=== PATIENT | female | born 1955 | race Caucasian/White ===

== ENCOUNTER 2017-08-05 22:38 | Emergency (ER) | payer MEDICAID ==
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
[2017-08-05 23:48] LABS: % BASOPHILS 0.9 % (0.0-2.0); % EOSINOPHILS 1.3 % (0.0-5.0); % LYMPHOCYTES 30.8 % (20.0-50.0); % MONOCYTES 10.6 % (2.0-10.0); % NEUTROPHILS 56.4 % (40.0-80.0); HEMATOCRIT 26.9 % (41.0-60); HEMOGLOBIN 8.8 gm/dL (12-16); LYMPHOCYTE ABSOLUTE 1.1 Th/cmm (1.5-3.0); MEAN CELL VOLUME 88.1 fl (81-100); MEAN CORPUSCULAR HEMOGLOBIN 28.8 pg (27.0-31.0); MEAN CORPUSCULAR HGB CONC 32.7 pg (28.0-36.0); MEAN PLATELET VOLUME 5.8 fl; MONOCYTE ABSOLUTE 0.4 Th/cmm (0.3-1.0); NEUTROPHILE ABSOLUTE 2.1 Th/cmm (1.8-8.0); PLATELET COUNT 244 Th/cmm (150-400); RED BLOOD COUNT 3.05 Mil/cmm (3.80-5.10); RED CELL DISTRIBUTION WIDTH 16.7 % (11.5-20.0)
[2017-08-05 23:49] LABS: WHITE BLOOD COUNT 3.6 Th/cmm (4.8-10.8)
[2017-08-06 00:01] LABS: ANION GAP 10.4 (7.0-16.0); BUN - UREA NITROGEN 16 mg/dL (7-25); CALCIUM SERUM 8.8 mg/dL (8.6-10.3); CHLORIDE 106 mEq/L (98-107); CREATININE - SERUM 0.7 mg/dL (0.6-1.2); GFR AFRICAN-AMERICAN > 60.0 ml/min (>90); GFR NON AFRICAN-AMERICAN > 60.0 ml/min; GLUCOSE 85 mg/dL (70-105); MAGNESIUM 1.5 mg/dL (1.9-2.7); POTASSIUM SERUM 3.4 mEq/L (3.5-5.1); SODIUM SERUM 137 mEq/L (136-145)
[2017-08-06] MEDS ORDERED: Multivitamin Inj 10 ML, Thiamine HCL 100 MG, Magnesium Sulfate 2 GM, Folic Acid 1 MG in... IV ONE (00:32)
== END 2017-08-06 06:05 | disposition home or self-care (01) ==
LOC: ER 22:38
DX: M54.5 Low back pain (principal); M25.561 Pain in right knee; M25.562 Pain in left knee; F10.129 Alcohol abuse with intoxication, unspecified; E87.6 Hypokalemia; D64.9 Anemia, unspecified; E83.42 Hypomagnesemia
CPT/HCPCS: 36415-UA; 80048-TC; 80320-TC; 83605; 83735-TC; 85025-TC; Z7502